=== PATIENT | male | born 1970 | race Caucasian/White ===

== ENCOUNTER 2021-05-29 09:39 | Outpatient (CLI) | payer OTHER | END 2021-05-29 19:37 | disposition home or self-care (01) | LOC: SMI 09:39 | PROVIDERS: ATTEND Family Medicine | DX: M19.011 Primary osteoarthritis, right shoulder (principal); M89.311 Hypertrophy of bone, right shoulder; N43.3 Hydrocele, unspecified; N50.3 Cyst of epididymis | CPT/HCPCS: 73221; 76870-TC ==

== ENCOUNTER 2021-06-24 08:34 | Outpatient (CLI) | payer OTHER | END 2021-06-24 19:16 | disposition home or self-care (01) | LOC: SUS 08:34 | PROVIDERS: ATTEND Family Medicine | DX: R22.1 Localized swelling, mass and lump, neck (principal) | CPT/HCPCS: 76536-TC ==

== ENCOUNTER 2021-11-07 06:44 | Emergency (ER) | payer OTHER ==
[~2021-11-07] VITALS: Ht 170.2 cm; Wt 95.3 kg
--- NOTE | 2021-11-07 07:30 | NUR ---
Patient to ER tent for evaluation. Report given to Rodolfo LIRIANO.
--- NOTE | 2021-11-07 07:45 | NUR ---
AIXA Pena at bedside examining patient.
--- NOTE | 2021-11-07 08:00 | NUR ---
Pt c/o intermittent blood tinged sputum.Pt reports COVID(+). No acute distress noted.
[2021-11-07 08:58] LABS: HEMATOCRIT 49.8 % (36-54); HEMOGLOBIN 16.9 g/dL (14.0-18.0); MEAN CORPUSCULAR HEMOGLOBIN 29 pg (27-31); MEAN CORPUSCULAR HGB CONC 34 % (32-36); MEAN CORPUSCULAR VOLUME 85 fL (79.0-98.0); PLATELET COUNT (AUTO) 225 K/uL (130-430); RED BLOOD CELL COUNT(AUTO) 5.83 MIL/uL (4.2-6.2); RED CELL DISTRIBUTION WIDTH 12.7 % (9.0-15.0); WHITE BLOOD COUNT (AUTO) 5.5 K/uL (4.8-10.8)
[2021-11-07 09:21] LABS: CALCIUM 9.2 mg/dL (8.4-11.0); CREATININE 0.73 mg/dL (0.55-1.30); POTASSIUM 4.3 mmol/L (3.5-5.1)
[2021-11-07 09:27] LABS: TOTAL BILIRUBIN 0.5 mg/dL (0.0-1.0)
[2021-11-07 10:59] VITALS: BP_SYST 135
--- NOTE | 2021-11-07 10:59 | NUR ---
Patient given written and verbal discharge instructions and verbalizes understanding. ER MD discussed with patient the results and treatment provided. Patient in stable condition. ID arm band removed. No Rx given. Patient educated on pain management and to follow up with PMD. Pain Scale 0. Opportunity for questions provided and answered. Medication side effect fact sheet provided.
== END 2021-11-07 10:59 | disposition home or self-care (01) ==
LOC: SED 06:44
DX: R04.2 Hemoptysis (principal); E11.65 Type 2 diabetes mellitus with hyperglycemia; U09.9 Post COVID-19 condition, unspecified
CPT/HCPCS: 36415; 71045; 80053; 83051; 85014; 85048; 85049-TC; 85379; 99284

== ENCOUNTER 2022-08-03 10:55 | Outpatient (CLI) | payer OTHER ==
[2022-08-03 11:34] LABS: BASOPHILS # (AUTO) 0.1 K/uL (0.0-0.2); BASOPHILS % (AUTO) 1.1 % (0.0-2.0); EOSINOPHILS # (AUTO) 0.2 K/uL (0.0-0.4); EOSINOPHILS % (AUTO) 3.2 % (0.0-4.0); HEMOGLOBIN 16.5 g/dL (14.0-18.0); LYMPHOCYTES # (AUTO) 2.3 K/uL (1.0-5.5); LYMPHOCYTES % (AUTO) 44.7 % (20.5-51.5); MEAN CORPUSCULAR HEMOGLOBIN 30 pg (27-31); MEAN CORPUSCULAR HGB CONC 35 % (32-36); MEAN CORPUSCULAR VOLUME 86 fL (79.0-98.0); MONOCYTES # (AUTO) 0.4 K/uL (0.0-1.0); MONOCYTES % (AUTO) 8.6 % (1.7-9.3); NEUTROPHILS # (AUTO) 2.2 K/uL (1.8-7.7); NEUTROPHILS % (AUTO) 42.4 % (40.0-70.0); PLATELET COUNT (AUTO) 258 K/uL (130-430); RED BLOOD CELL COUNT(AUTO) 5.45 MIL/uL (4.2-6.2); RED CELL DISTRIBUTION WIDTH 12.5 % (9.0-15.0); WHITE BLOOD COUNT (AUTO) 5.1 K/uL (4.8-10.8)
[2022-08-03 12:34] LABS: ALBUMIN 4.4 g/dL (3.4-4.8); CALCIUM 9.2 mg/dL (8.4-11.0); CREATININE 0.94 mg/dL (0.55-1.30); THYROID STIMULATING HORMONE 1.33 uIu/mL (0.36-3.74); TOTAL BILIRUBIN 0.7 mg/dL (0.0-1.0)
[2022-08-04 08:06] LABS: PROSTATE SPECIFIC AG 0.3 ng/mL (0.0-4.0)
[2022-08-04 14:36] LABS: HEMOGLOBIN A1C 10.5 % (4.8-5.6)
[2022-08-04 14:37] LABS: CREATININE, URINE 124.5 mg/dL; MICROALBUMIN URINE RANDOM 52.5 ug/ml (NOT ESTABLISHED)
== END 2022-08-03 19:48 | disposition home or self-care (01) ==
LOC: SLB 10:55
PROVIDERS: ATTEND Family Medicine
DX: Z00.00 Encounter for general adult medical examination without abnormal findings (principal); E11.9 Type 2 diabetes mellitus without complications; R94.6 Abnormal results of thyroid function studies
CPT/HCPCS: 36415; 80053; 80061; 82043; 82570; 83036; 84153; 84443; 85025